=== PATIENT | female | born 1955 | race African-American/Black ===

== ENCOUNTER 2016-12-13 23:47 | Emergency (ER) | payer MEDICAID ==
[~2016-12-13] VITALS: Ht 152.4 cm; Wt 98.0 kg
[~2016-12-13 23:47] MED LIST: ALPR0.255 PO; AMIT25TA9 PO; BENZ1TAB10 PO; CHLO50 PO; DIAZ10 PO; DIPH25CA26 PO; FENT25PAT TD; HYDR-3421 PO; HYDR2 PO; HYDR25TA PO; LIDOP TD; OMEP20 PO; SERT50TA12 PO; WARF5 PO
[2016-12-14 01:27] VITALS: BP 119/86
== END 2016-12-14 01:29 | disposition home or self-care (01) ==
LOC: EMS 23:48
DX: S90.31XA Contusion of right foot, initial encounter (principal); I10 Essential (primary) hypertension; Z88.6 Allergy status to analgesic agent; Z88.5 Allergy status to narcotic agent; Z86.73 Personal history of transient ischemic attack (TIA), and cerebral infarction without residual deficits; W01.0XXA Fall on same level from slipping, tripping and stumbling without subsequent striking against object, initial encounter; Y93.89 Activity, other specified; Y92.89 Other specified places as the place of occurrence of the external cause; Y99.8 Other external cause status
CPT/HCPCS: 99284

== ENCOUNTER 2016-12-17 13:15 | Emergency (ER) | payer MEDICAID ==
[~2016-12-17] VITALS: Ht 152.4 cm; Wt 100.0 kg
[~2016-12-17 13:15] MED LIST changes: -WARF5 PO
[2016-12-17 15:44] LABS: INFLUENZA TYPE B NEGATIVE FOR TYPE B (NEGATIVE)
[2016-12-17] MEDS ORDERED: ALBUTEROL SULFATE 5 MG/ML 20 ML NEB SOLN [BULK] NEB ONE (16:45)
[2016-12-17] MEDS ORDERED: IPRATROPIUM BROMIDE 0.5 MG/2.5 ML NEB SOLUTION NEB ONE (16:45)
[2016-12-17] MEDS ORDERED: DEXAMETHASONE SOD PHOS 4 MG/ML VIAL IM ONE (16:45)
[2016-12-17] MEDS ORDERED: 0.9% SODIUM CHLORIDE 5 ML NEB SOLUTION NEB ONE ×2 (17:32→17:36)
[2016-12-17] MEDS ORDERED: MORPHINE SULFATE 15 MG IR TABLET PO ONE (18:15)
[2016-12-17 18:20] VITALS: BP 109/74
== END 2016-12-17 19:48 | disposition home or self-care (01) ==
LOC: EMS 13:33
DX: J40 Bronchitis, not specified as acute or chronic (principal); R51 Headache; I10 Essential (primary) hypertension; Z88.5 Allergy status to narcotic agent; Z88.6 Allergy status to analgesic agent
CPT/HCPCS: 71020; 87804; 94644; 96372; 99285; J1100; J7611